=== PATIENT | male | born 1975 | race Caucasian/White ===

== ENCOUNTER 2019-02-01 23:15 | Observation (INO) | payer MEDICARE, SELFPAY ==
[~2019-02-01 23:15] MED LIST: ISOVUE-370 76%-LOCM 1 ML ONE
[2019-02-01] MEDS ORDERED: Morphine 4 MG/ML VIAL ONE (23:36)
--- NOTE | 2019-02-02 00:03 | CT ---
CT arteriogram chest with IV contrast and 3-D imaging CT arteriogram abdomen with IV contrast and 3-D imaging HISTORY: Chest and abdomen pain with radiation to back. FINDINGS: There is good contrast opacification of the pulmonary arteries and aorta with normal origin of the great vessels at the aortic arch. Normal aortic diameter. No evidence of dissection. Mild arterial calcification. Accessory right renal artery to the superior pole. Visceral arteries are mckeon nt. Pelvis wasn't completely imaged. Degenerative and postoperative changes lumbar spine. Mild diverticulosis of the colon. IMPRESSION: No evidence of aortic dissection or other acute abnormality. Atherosclerosis.
[2019-02-02 00:19] LABS: Troponin I Less than 0.010 ng/mL (< 0.028)
[2019-02-02] MEDS ORDERED: hydrALAZINE 20 MG/ML VIAL ONE (00:49)
[2019-02-02] MEDS ORDERED: Sodium Chloride 0.9% 1,000 ML IV SCH (02:24)
[2019-02-02] MEDS ORDERED: Ondansetron ODT 4 MG TAB SL PRN (02:24)
[2019-02-02] MEDS ORDERED: Ondansetron PF 4 MG/2 ML Vial IVP PRN (02:24)
[2019-02-02] MEDS ORDERED: Acetaminophen 325 MG TAB PO PRN (02:24)
[2019-02-02 02:36] VITALS: BMI 32.6
[2019-02-02] MEDS ORDERED: hydrALAZINE 20 MG/ML VIAL SLOW IVP PRN (03:01)
[2019-02-02] MEDS ORDERED: Acetaminophen 650 MG Suppository PR PRN (03:03)
[2019-02-02] MEDS ORDERED: Senokot S 8.6-50 MG TAB PO PRN (03:05)
[2019-02-02] MEDS ORDERED: Guaifenesin DM 100-10/5 ML UDCUP PO PRN (03:05)
[2019-02-02] MEDS ORDERED: traMADol HCl 50 MG TAB PO PRN (03:06)
--- NOTE | 2019-02-02 04:37 | HP ---
CHIEF COMPLAINT: Chest pain. HISTORY OF PRESENT ILLNESS: Mr. Alaniz is a 44-year-old man who presents after developing chest pain while doing yard work. 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 He states this occurred around 6:30 or 7:00 p.m. He states the pain was 8/10 in severity. However, his pain threshold seems to be higher than most. The patient immediately went in and told his sister who took his blood pressure and noted that it was elevated. At that point, EMS was contacted and he was given aspirin, Zofran and nitro when en route to the [facility]. The patient states his pain had slightly eased to about 5/10 in severity. Upon arrival to the emergency department, he was given another dose of nitro, which did help to improve his pain further to about a 3/10 in severity. At this present time, his pain has fully resolved. He does, however, report right lower posterior chest discomfort with palpation in certain movements. The patient denies any major trauma. He reports mild strenuous activity. He has otherwise been very active and denies having any shortness of breath. After being given morphine and nitro, the patient states he did experience some mild headache. He has a known history of a previous [place]. He was lost to follow up with Cardiology approximately 2-3 years ago due to not having insurance. He does not follow with a regular primary care doctor either. He states he has never been on any medications. REVIEW OF SYSTEMS: The patient denies having any recent fevers, chills, or sweats. He does report a cough and states it has been productive, but he is unsure what color it has been. He does deny any hemoptysis. He denies any recent fevers, chills, or sweats and attributes to coughed who seasonal allergies. He denies having any pleuritic-type chest pain. He does report earlier today he was experiencing discomfort to the right lower posterior rib cage region and denies any trauma, but it is tender to palpation and the pain is made worse with certain movements. He denies any recent travels. No lower leg swelling or edema. No calf tenderness. No urinary symptoms or stool changes. All other review of systems are negative. PAST MEDICAL HISTORY: Previous AK. PAST SURGICAL HISTORY: 1. L5 disk replacement. 2. Hernia repair. SOCIAL HISTORY: The patient denies any alcohol use. He smokes a pack and a half a day. Denies any illicit drug use. ALLERGIES: 1. NAPROXEN. 2. PENICILLIN. 3. SULFA. CURRENT MEDICATIONS: None. PHYSICAL EXAMINATION: GENERAL: The patient appears well developed, well nourished, is in no acute distress. VITAL SIGNS: Temperature 97.8, pulse 79, respirations 18, O2 saturation 93% on room air, blood pressure 185/89. HEENT: Normocephalic and atraumatic. Pupils are equal, round, and reactive to light. Sclerae icterus. Oropharynx is clear. NECK: Supple. No lymphadenopathy. LUNGS: Clear to auscultation bilaterally without any wheezes, rales, or rhonchi. CARDIAC: Regular rate and rhythm without audible murmurs, rubs, or gallops. Left-sided chest wall tenderness to palpation including the anterior left chest and the left upper lateral chest region. No bony deformities. No bruising. No swelling. He does have tenderness to the right costovertebral angle, which is made worse with palpation on certain movements. Regular rhythm. ABDOMEN: Soft, nontender, and nondistended. Normoactive bowel sounds present. No guarding or rigidity. EXTREMITIES: No lower leg swelling or edema. NEUROLOGIC: Alert and oriented x3. SKIN: Without rash or jaundice. LABORATORY DATA: White blood count 11.6, hemoglobin 15.5, hematocrit 44.9, platelets 244. Sodium 144, potassium 3.9, BUN 13, creatinine 0.98, GFR 84, calcium 9.5, total bilirubin 0.4, AST 15, ALT 16, alkaline phosphatase 92, CK-MB 1.3. BNP 64.3, total protein 7.5, albumin 4.8, and globulin 2.7. IMAGING DATA: 1. CT dissection, 02/01/2019. No evidence of aortic dissection or acute abnormality. Degenerative and postoperative changes to the lumbar spine. Mild diverticulosis of the colon. 2. Chest x-ray, 02/01/2019. Borderline pulmonary vascular congestion. Widespread reticulonodular interstitial prominence. IMPRESSION AND PLAN: Mr. Alaniz is a 44-year-old man who presents with acute onset chest pain, being referred for ACS rule out. The patient is unsure how long exactly the pain lasted, but it is fully resolved now. It was on the left side of his chest radiating down his left arm. On examination, he does have tenderness to the left anterior chest and left upper lateral chest with palpation. He also has an area of tenderness involving the right costovertebral angle. The patient denies any injury, but was mowing the lawn before the pain started. He states he felt slightly worse with morphine due to it causing his headache. There may be a musculoskeletal component and we will try tramadol for his pain. CT dissection has been done, which is unremarkable. We would will continue to trend his troponins and a Cardiolite stress test has been ordered for tomorrow to rule out myocardial infarction. Today his BNP is normal. Echo has been requested given evidence of pulmonary vascular congestion on chest x-ray. The patient has not had any cardiac investigations. We will give guaifenesin for his cough, which patient feels is associated with his seasonal allergies. We will continue to monitor his temperature. We will also continue to monitor his O2 sats and other vitals. Blood pressure is currently elevated at 185/89. We will give p.r.n. hydralazine. Since he is a smoker, we will give nicotine patch. The patient to be seen by a day team for further recommendations. Day Team to decide if Cardiology input needed based on results. Full code status. His surrogate decision maker is his , Laina Alaniz. The patient's case was discussed with Dr. Samaniego who is the attending physician. Job ID: [id number]
[2019-02-02 06:57] LABS: #Basophils 0.2 thou/uL (0.0-0.2); #Eosinphils 0.4 thou/uL (0.0-0.7); #Lymphocytes 4.9 thou/uL (1.20-3.40); #Neutrophils 3.7 thou/uL (1.40-6.50); %Basophils 1.7 % (0.0-1.0); %Eosinophils 4.3 % (0.0-10.0); %Lymphocytes 48.1 % (21.0-51.0); %Monocytes 9.3 % (0.0-10.0); %Neutrophils 36.6 % (42.0-75.0); Mean Corpuscular HGB CONC 34.1 g/dL (32.0-36.0); Mean Corpuscular Hemoglobin 30.9 pg (27.0-31.0); Mean Corpuscular Volume 90.8 fL (78.0-98.0); Mean Platelet Volume 7.9 fL (7.4-10.4); Platelet Count 236 thou/uL (130-400); RBC Distribution Width 12.5 % (11.5-14.5); Red Blood Cell (RBC) Count 4.84 mill/uL (4.70-6.10); White Blood Cell (WBC) Count 10.2 thou/uL (4.8-10.8)
[2019-02-02 07:17] LABS: Anion Gap 14 mmol/L (10-20); BUN (Urea Nitrogen) 13 mg/dL (8.9-20.6); Calc. Creatinine Clearance 169 mL/min (70-130); Calcium 9.3 mg/dL (7.8-10.44); Carbon Dioxide 22 mmol/L (22-29); Chloride 108 mmol/L (98-107); Estimated GFR-MDRD Greater than 90; Glucose 95 mg/dL (70-105); Potassium 3.7 mmol/L (3.5-5.1); Sodium 140 mmol/L (136-145)
[2019-02-02] MEDS ORDERED: Aspirin Chewable 81 MG TAB PO SCH (09:00)
[2019-02-02] MEDS ORDERED: Famotidine/PF 20 mg/2ml Vial SLOW IVP SCH (09:00)
[2019-02-02] MEDS ORDERED: Nicotine 21 MG PATCH TD SCH (09:00)
--- NOTE | 2019-02-02 12:19 | NM ---
EXAM: Nuclear medicine cardiac SPECT with EF and wall motion: HISTORY: Chest pain, history of [place], smoker Protocol: Exam was performed using [facility] protocol. Patient was injected with 30.7 mCi technetium 99m sestamibi intravenously for stress images Patient was injected with 9.3 mCi technetium 99m sestamibi intravenously for resting images. Multiple SPECT images are performed in the short axis, vertical long axis, and horizontal long axis. FINDINGS: No scan evidence for infarct or ischemia. TID:1.05 LHR:0.30 EDV:158 mL EF:61% Wall motion:Within normal limits. IMPRESSION: No scan evidence for overt infarct or ischemia. Elevated EDV.
[2019-02-02 12:33] VITALS: BP 142/67; TEMP 97.8
[2019-02-02] MEDS ORDERED: ADENOSINE 60 MG/20 ML VIAL ONE (12:43)
--- NOTE | 2019-02-02 14:23 | DIS ---
DATE OF ADMISSION: 02/02/2019 DATE OF DISCHARGE: 02/02/2019 PRIMARY CARE PHYSICIAN: Ericka Call admission. ADMIT TIME: 2:00 a.m. DISCHARGE TIME: 2:00 p.m. HISTORY OF PRESENT ILLNESS: A 44-year-old male, who has underlying history of tobacco abuse disorder, who came to emergency room. The patient is taking ibuprofen 800 mg on p.r.n. basis for his chronic arthritic pain. He was evaluated at [facility] for chest pain. The patient describes chest pain is left-sided without any radiation, associated with mild nausea without any shortness of breath or palpitation. He denies any headache. He denies any fever, chills, or pleuritic chest pain. He started feeling radiating pain to the arm and at that point, he decided to go to emergency room for evaluation. At [facility], his BNP was normal. His troponin was slightly indeterminate. His chest x-ray was unremarkable other than pulmonary vascular congestion. He does not have any chronic orthopnea, PND, or dyspnea on exertion. He does not have any cough or palpitation. REVIEW OF SYSTEMS: CONSTITUTIONAL: Negative for weight loss or gain, ability to conduct usual activities. SKIN: Negative for rash, itching. EYES: Negative for double vision, pain. ENT/MOUTH: Negative for nose bleeding, neck stiffness, pain, tenderness. CARDIOVASCULAR: Negative for palpitations, dyspnea on exertion, orthopnea. RESPIRATORY: Negative for shortness of breath, wheezing, cough, hemoptysis, fever or night sweats. GASTROINTESTINAL: Negative for poor appetite, abdominal pain, heartburn, nausea, vomiting, constipation, or diarrhea. GENITOURINARY: Negative for urgency, frequency, dysuria, nocturia. MUSCULOSKELETAL: Negative for pain, swelling. NEUROLOGIC/PSYCHIATRIC: Negative for anxiety, depression. ALLERGY/IMMUNOLOGIC: Negative for skin rash, bleeding tendency. Please see my HPI for pertinent positive and negative. All other review of systems reviewed and negative except as mentioned in HPI. PAST MEDICAL HISTORY: Reviewed and negative. PAST SURGICAL HISTORY: L5 disk replacement, hernia repair. PAST PSYCHIATRIC HISTORY: Reviewed and negative. SOCIAL HISTORY: He smokes about one pack per day. He denies any alcohol abuse. He denies any other illicit drug abuse. FAMILY HISTORY: No strong family history of premature coronary artery disease, stroke, or cancer. ALLERGIES: NAPROXEN, PENICILLIN, AND SULFA DRUGS. CURRENT HOME MEDICATIONS: The patient is taking ibuprofen 800 mg p.r.n. for pain. EMERGENCY ROOM COURSE: The patient was given hydralazine 10 mg. PHYSICAL EXAMINATION: VITAL SIGNS: Blood pressure 165/102, pulse 83, respiratory rate 20, temperature 98.3, saturation 98% on room air, and weight 111.6 kg. GENERAL: The patient is currently alert, awake, in no obvious acute distress. HEENT: Head; normocephalic and atraumatic. Eyes; pupils are round and reactive to light. Extraocular muscles intact. ENT, oropharynx within normal limits. Moist mucous membranes. No oral lesion. No pharyngeal erythema. No exudate. NECK: Supple. No JVD. No thyromegaly. No carotid bruit. No jugular venous distention. LUNGS: Clear to auscultation without any rhonchi or rales. CARDIAC: S1 and S2 regular. No murmur. No gallop. No rub. ABDOMEN: Soft. Bowel sounds present. Nontender. Nondistended. No organomegaly. No mass. No suprapubic tenderness. BACK: Unremarkable. No CVA tenderness. EXTREMITIES: Upper extremities, passive movement of all joints are normal. Lower extremities, no edema. Good distal pulsation. SKIN: No skin rash. HEMATOLOGIC: No lymphadenopathy. NEUROLOGIC: Nonfocal examination. SIGNIFICANT LABORATORY DATA: EKG showing normal sinus rhythm. Telemetry showed normal sinus rhythm. Chest x-ray, unremarkable. CT dissection protocol negative for any dissection. Stress test came back negative. WBC 10.2, hemoglobin 15.0, platelet 236. BMP; sodium 140, potassium 3.7, chloride 108, BUN 13, creatinine 0.81, calcium 9.3. Troponin, subsequently negative x3. ASSESSMENT AND PLAN: 1. Chest pain, ruled out acute coronary syndrome. The patient has negative stress test, negative CT dissection. His EKG is also unremarkable. Troponins were negative. At this point, we have completely excluded cardiac etiology. The patient was taking ibuprofen and that might be causing gastroesophageal reflux disease related discomfort and that is why I have prescribed Pepcid upon discharge. 2. Hypertension. The patient has high blood pressure upon arrival to the emergency room, and intermittently, blood pressure also high in our hospital. At this point, I will start amlodipine 5 mg p.o. daily and then he will follow up with primary care physician. Healthy lifestyle measure discussed with the patient. 3. Tobacco abuse disorder. Smoking cessation counseling given. Healthy lifestyle measure discussed with the patient. Deep venous thrombosis prophylaxis not needed. Gastrointestinal prophylaxis, Pepcid 20 mg p.o. b.i.d. 4. Chronic low back pain. The patient will continue Tylenol rather than ibuprofen p.r.n. basis for pain. DISPOSITION PLAN: The patient is admitted and discharged on the same day. Plan of care discussed with the patient and his at bedside. Job ID: [id number]
--- NOTE | 2019-02-03 08:59 | EKG ---
Test Reason : ABDOUL R
== END 2019-02-02 14:42 | disposition home or self-care (01) ==
LOC: ERS 23:15 → 2SW 02-02 02:04
PROVIDERS: ADMIT Internal Medicine; ATTEND Internal Medicine
DX: R07.9 Chest pain, unspecified (principal); I25.2 Old myocardial infarction; I10 Essential (primary) hypertension; F17.210 Nicotine dependence, cigarettes, uncomplicated; G89.29 Other chronic pain; M54.5 Low back pain; Z88.0 Allergy status to penicillin; Z88.2 Allergy status to sulfonamides; Z88.6 Allergy status to analgesic agent
CPT/HCPCS: 36415; 71275; 78452; 80048; 84484; 85025; 90471; 90732; 93005; 93017; 94760; 96374; 96375; A9500; G0009; G0378; J0153; J0360; J2270; Q9966; S0028